=== PATIENT | female | born 1960 | race Caucasian/White ===

== ENCOUNTER 2016-05-21 16:42 | Inpatient (IN) | payer OTHER ==
[~2016-05-21] VITALS: Ht 154.9 cm; Wt 79.8 kg
[~2016-05-21 16:42] MED LIST: BENEPOW8 PO; LACTCAP8 PO; LISI40TA PO
[2016-05-22] MEDS ORDERED: METOPROLOL TARTRATE 25 MG TAB PO PRN (08:15)
[2016-05-22] MEDS ORDERED: INSULIN HUMAN REGULAR 1,000 UNITS/10 ML VIAL SQ PRN (08:15)
[2016-05-22] MEDS ORDERED: LACTATED RINGER'S 1000 ML IV SCH (08:15)
[2016-05-22] MEDS ORDERED: SODIUM CHLORID 0.9% 500 ML IV SCH (08:15)
[2016-05-22] MEDS ORDERED: ceFAZolin INJ 1,000 MG VIAL ONE (08:41)
[2016-05-22] MEDS ORDERED: ASPI1TAB69 PO (08:41)
[2016-05-22] MEDS ORDERED: SODIUM CHLORIDE 0.9% INJ 50 ML ONE (08:42)
[2016-05-22] MEDS ORDERED: VANCOMYCIN HCL 1000 MG VIAL ONE (08:42)
[2016-05-22] MEDS ORDERED: SODIUM CHLOR 0.9% 250 ML INJ 250 ML ONE (08:42)
[2016-05-22 08:47] VITALS: BP 120/78; PULSE 63; RESP 20; TEMP 98.2; O2SAT 96
[2016-05-22] MEDS ORDERED: DEXAMETHASONE SOD PHOS 20 MG/5 ML VIAL ONE (08:56)
[2016-05-22] MEDS ORDERED: MIDAZOLAM HCL 5 MG/5 ML VIAL ONE (09:13)
[2016-05-22] MEDS ORDERED: METOCLOPRAMIDE HCL 10 MG/2 ML VIAL ONE (09:13)
[2016-05-22] MEDS ORDERED: FAMOTIDINE 20 MG/2 ML VIAL ONE (09:13)
[2016-05-22] MEDS ORDERED: ACETAMINOPHEN 1000 MG/100 ML VIAL IV ONE (09:13)
[2016-05-22] MEDS ORDERED: VANCOMYCIN 1000 MG/NS 250 ML (for <70 kg) IV SCH ×2 (09:15)
[2016-05-22] MEDS ORDERED: SODIUM CHLORIDE 0.9% IV SCH ×2 (09:15→12:30)
[2016-05-22] MEDS ORDERED: ceFAZolin 2 GM PREMIX 50 ML IV SCH (09:15)
[2016-05-22] MEDS ORDERED: POVIDONE IODINE 7.5% SCRUB 118 ML BOTTLE TOP SCH (09:15)
[2016-05-22] MEDS ORDERED: ROPIVACAINE PERI-ARTICULAR INJECTION. PERIART SCH ×5 (09:15)
[2016-05-22] MEDS ORDERED: DEXAMETHASONE SOD PHOS 20 MG/5 ML VIAL IV ONE (09:15)
[2016-05-22] MEDS ORDERED: TRANEXAMIC ACID IV SCH ×2 (09:15→12:30)
[2016-05-22] MEDS ORDERED: GENTAMICIN SULFATE 80 MG/2 ML VIAL ONE (09:24)
[2016-05-22] MEDS ORDERED: NEOSTIGMINE 3 MG/3 ML SYR IV ONE (11:06)
[2016-05-22] MEDS ORDERED: ONDANSETRON HCL 4 MG/2 ML VIAL IV PUSH ONE (11:06)
[2016-05-22] MEDS ORDERED: ePHEDrine/NS 25 MG/5 ML SYR IV ONE (11:06)
[2016-05-22] MEDS ORDERED: PROPOFOL 200 MG/20 ML AMP IV ONE (11:06)
[2016-05-22] MEDS ORDERED: LACTATED RINGER'S 1000 ML INJ 1,000 ML IV ONE (11:06)
[2016-05-22] MEDS ORDERED: PHENYLEPH/NS 1000 MCG/10 ML SYR IV ONE (11:06)
--- NOTE | 2016-05-22 11:39 | PD.OP ---
cc: Narendra Tapia MD Operative Report Date of Surgery: May 22, 2016 Preoperative Diagnosis: Right knee severe osteoarthritis Postoperative Diagnosis: Same Procedure: Right total knee arthroplasty Anesthesia: Adductor canal block and general Surgeon: Narendra Tapia Order Checker Packer Processer(s): FABRIZIO Cash The surgical procedure was assisted by my Advanced Registered Nurse Practitioner. My MEDICAL GENETICS DIRECTOR presence was necessary throughout this case for the manipulation and positioning of the surgical extremity. My MEDICAL GENETICS DIRECTOR was assisting me throughout the duration of this procedure. The skill set of an Advance Registered Nurse Practitioner was medically necessary to complete this procedure. During the surgical case, the surgical first assistant was working at the back table and the Advance Registered Nurse Practitioner was directly assisting me. Operation and Findings: IMPLANTS: DePuy Attune: Patella: size 32. Femur, posterior stabilized size 5 narrow. Tibia, rotating platform size 4. Tibial insert, rotating platform, posterior stabilized size 5 mm thickness. ESTIMATED BLOOD LOSS: 150 cc TOURNIQUET TIME: 38 minutes at 250 mmHg pressure. JUSTIFICATION FOR PROCEDURE: The patient has end-stage osteoarthritis to the knee. There is an attached conservative measures pathway form in the chart that describes the nonoperative measures that were undertaken prior to consideration of surgical management. The patient understood the risks and benefits of surgical management. See my office notes for further details PROCEDURE: The patient was brought back to the operative theatre. Adequate anesthesia was obtained. The patient received intravenous vancomycin and Ancef. The patient was given a test dose of Ancef by the anesthesiologist and did not have a reaction. The lower extremity was prepped and draped in the usual sterile fashion.The leg was exsanguinated, the tourniquet was raised. A standard anterior incision was performed followed by medial parapatellar arthrotomy was performed. End-stage arthritis was identified. Osteotomy of the patella was performed. We drilled holes for the patella. We trialed the patella component. We placed an intramedullary guide into the distal femur. We ultimately resected 11 mm off of the distal femur in 5 degrees of valgus. The remnants of the ACL and PCL were resected. Osteotomy of the proximal tibia was performed, resecting 5 mm off of the medial side. This was done with 3 degrees of posterior slope using an extramedullary guide. The distal end of the guide was placed in the mid aspect of the ankle. The femur was sized, and four chamfer cuts were completed in 3 of external rotation. We then cut the central box in the distal femur to replace the PCL. We resected the remnants of the menisci and removed osteophytes off of the femur and tibia. We then trialed the knee. We punched the tibia for the keel, and then used standard technique to cement in components. Excess cement was removed. We trialed the knee again and the final polyethylene thickness was chosen to provide extension to 0 degrees, and flexion of 140 degrees to gravity. The ligaments were appropriately balanced. Lateral release was necessary to obtain excellent patellofemoral tracking. The tourniquet was released and adequate hemostasis was obtained. An intra- articular injection of a ropivacaine cocktail was injected. The posterior knee was inspected for excess cement, which was removed. The final polyethylene was put into position after thorough irrigation. We then closed deep fascia with a #2 Stratafix followed by skin with 2-0 Vicryl followed by kady. Postop plan is to weight-bear as tolerated. DVT prophylaxis will be performed with [place], KEZIA reese, early mobilization, and Lovenox followed by aspirin. Narendra Tapia MD May 22, 2016 11:39
[2016-05-22] MEDS ORDERED: BUPIVACAINE LIPOSOME PF 1.3% 20 ML VIAL ONE (11:40)
[2016-05-22] MEDS ORDERED: ENOX40P SQ (11:41)
[2016-05-22] MEDS ORDERED: ASPI325T PO (11:42)
[2016-05-22] MEDS ORDERED: NORC5TAB PO (11:42)
[2016-05-22] MEDS ORDERED: SODIUM CHLORIDE 0.9% FLUSH 5 ML FLUSH IVF PRN (11:45)
[2016-05-22] MEDS ORDERED: BISACODYL 10 MG SUPP PR PRN (11:45)
[2016-05-22] MEDS ORDERED: NALOXONE HCL 0.4 MG/ML AMP IV PRN (11:45)
[2016-05-22] MEDS ORDERED: ONDANSETRON HCL 4 MG/2 ML VIAL IVP PRN (11:45)
[2016-05-22] MEDS ORDERED: ALUMINUM/MAGNESIUM/SIMETH 30 ML CUP PO PRN (11:45)
[2016-05-22] MEDS ORDERED: MORPHINE SULFATE 4 MG/ML INJ IV PUSH PRN (11:45)
[2016-05-22] MEDS ORDERED: MAGNESIUM HYDROXIDE SUSP 30 ML CUP PO PRN (11:45)
[2016-05-22] MEDS ORDERED: Post-op Orders (for Pharmacy) MISC XX ONE (11:45)
[2016-05-22] MEDS ORDERED: diphenhydrAMINE HCL 50 MG/ML VIAL IV PRN (11:45)
--- NOTE | 2016-05-22 11:52 | HHI.DCPOC ---
Discharge Care Plan Diagnosis: (1) Primary localized osteoarthrosis, lower leg (2) Status post total knee replacement, right Your Health Problems Are: Difficulty with ADL Goals to Promote Your Health * To prevent worsening of your condition and complications * To maintain your health at the optimal level Directions to Meet Your Goals Take your medications as prescribed Follow your dietary instruction Follow activity as directed Keep your appointments as scheduled Take your immunizations and boosters as scheduled If your symptoms worsen call your PCP, if no PCP go to Urgent Care Center or Emergency Room Smoking is Dangerous to Your Health. Avoid second hand smoke Call the 24-hour hour crisis hotline for domestic abuse at Isidoro Ordonez May 22, 2016 11:52
--- NOTE | 2016-05-22 11:53 | HHI.FF ---
Face to Face Verification Diagnosis: (1) Primary localized osteoarthrosis, lower leg (2) Status post total knee replacement, right Physical Therapy Gait training, Transfer training, bed to chair Knee: Total knee Right LE Weight Bearing: WB as tolerated Right LE Range of Motion: Active ROM Nursing Nursing: Miryam teaching, Dressing changes Dressing Changes: Daily dressing change I have seen patient Alanna Sierra on 05/22/16. My clinical findings support the need for the requested home health care services because: Limited ability to care for self High risk of falls I certify that my clinical findings support that this patient is homebound because: Post-op weakness Unsteady gait/balance Isidoro Ordonez May 22, 2016 11:53
[2016-05-22] MEDS ORDERED: WALKER WHEELS/F1 MIS (11:54)
[2016-05-22] MEDS ORDERED: CPMMACHINE (11:54)
[2016-05-22] MEDS ORDERED: COMMODE 3-IN-11 MIS (11:54)
[2016-05-22] MEDS ORDERED: fentaNYL CITRATE 250 MCG/5 ML AMP ONE (11:58)
[2016-05-22] MEDS ORDERED: DO NOT ADM ANY ANTICOAGULANT DRUGS XX PRN (12:15)
[2016-05-22] MEDS: SODIUM CHLOR 0.9% 1000 ML INJ 1,000 ML IV SCH ×2 (12:45→21:54)
[2016-05-22] MEDS ORDERED: *morphine SULFATE 8 MG/ML PERIprocedure ONLY ONE (12:54)
[2016-05-22] MEDS ORDERED: *ONDANSETRON 4 MG VIAL PERIprocedural Use ONLY ONE (12:57)
--- NOTE | 2016-05-22 13:04 | RADRPT ---
EXAM DATE/TIME: 05/22/2016 12:33 [place] COMPARISON: No previous studies available for comparison. INDICATIONS : Right knee surgery. MEDICAL HISTORY : None. SURGICAL HISTORY : right knee prosthesis ENCOUNTER: Initial ACUITY: 1 day PAIN SCORE: 7/10 LOCATION: Right knee FINDINGS: AP and lateral views of the knee following arthroplasty reveals a prosthesis in anatomic alignment. F racture is not appreciated. Surgical drain is evident CONCLUSION: Status post total knee arthroplasty. El Turner MD FACR Board Certified Radiologist. This report was verified electronically.
[2016-05-22] MEDS ORDERED: *PROMETHAZINE 25 MG/ML VIAL PERIprocedural use ONLY ONE (15:31)
[2016-05-22 20:00] VITALS: BP 140/69; PULSE 81; RESP 16; TEMP 96.8; O2SAT 98
[2016-05-22] MEDS ORDERED: ZOLPIDEM TARTRATE 5 MG TAB PO PRN (21:00)
[2016-05-22] MEDS: SODIUM CHLORIDE 0.9% FLUSH 5 ML FLUSH IVF SCH (21:00)
[2016-05-22] MEDS: ACETAMINOPHEN/HYDROcodone 325 MG/5 MG TAB PO PRN (21:54)
[2016-05-23] VITALS (7 sets, daily range): BP systolic 108–124; BP diastolic 56–80; PULSE 75–88; RESP 16–18; TEMP 97.1–99.3; O2SAT 95–97
[2016-05-23] MEDS: ACETAMINOPHEN/HYDROcodone 325 MG/5 MG TAB PO PRN ×3 (05:47→13:52)
[2016-05-23 05:48] LABS: HEMATOCRIT 29.5 % (35.0-46.0); MEAN CELL VOLUME 87.5 FL (80.0-100.0); MEAN CORPUSCULAR HEMOGLOBIN 29.3 PG (27.0-34.0); MEAN CORPUSCULAR HGB CONC 33.5 % (32.0-36.0); PLATELET COUNT 196 TH/MM3 (150-450); RED BLOOD COUNT 3.37 MIL/MM3 (4.00-5.30); RED CELL DISTRIBUTION WIDTH 12.4 % (11.6-17.2); REVIEW FLAG FINAL; WHITE BLOOD COUNT 13.7 TH/MM3 (4.0-11.0)
[2016-05-23] MEDS: SODIUM CHLOR 0.9% 1000 ML INJ 1,000 ML IV SCH (07:34)
[2016-05-23] MEDS ORDERED: DEXAMETHASONE SOD PHOS 20 MG/5 ML VIAL IV ONE (07:45)
[2016-05-23] MEDS ORDERED: LISINOPRIL 20 MG TAB PO SCH (09:00)
[2016-05-23] MEDS: SODIUM CHLORIDE 0.9% FLUSH 5 ML FLUSH IVF SCH (09:00)
[2016-05-23] MEDS ORDERED: ENOXAPARIN SODIUM 40 MG/0.4 ML SYRINGE SQ SCH (11:00)
--- NOTE | 2016-05-23 11:12 | PD.CONS ---
HPI Service [facility] Hospitalists Consult Requested By Dr. Tapia Reason for Consult Medical management Primary Care Physician Hailey Renee MD Diagnoses: (1) Primary localized osteoarthrosis, lower leg (2) Status post total knee replacement, right (3) ESSENTIAL (PRIMARY) HYPERTENSION (4) GERD (gastroesophageal reflux disease) History of Present Illness 55-year-old female with a medical history significant for hypertension, GERD, hiatal hernia and osteoarthritis admitted to the hospital for right knee arthroplasty. Hospitalist service consulted for medical management. Patient reports she has been having issues with osteoarthritis for a few years involving bilateral knees, the right being the worst. She has tried conservative treatments including physical therapy, injections and pain management without much relief. She was admitted for total knee arthroplasty. She is seen postoperatively. She is doing fairly well sitting up in the chair. She ambulated with physical therapy. Currently her pain is controlled. Regarding hypertension, she reports it has been controlled on lisinopril. She denies chest pain or shortness of breath from exertion. Her GERD symptoms are not frequent. She takes Tums as needed. She has no other complaints. Review of Systems Constitutional: DENIES: Fever, Chills Cardiovascular: DENIES: Chest pain, Dyspnea on Exertion, Lower Extremity Edema Musculoskeletal: COMPLAINS OF: Joint pain, Stiffness Neurologic: DENIES: Headache, Localized weakness Other All other systems reviewed and are negative. Past Family Social History Allergies: Coded Allergies: Clindamycin (Verified Allergy, Severe, CDIFF, 05/22/16) Penicillin (Verified Allergy, Severe, HIVES, 05/22/16) Sulfa (Verified Allergy, Severe, Rash, 05/22/16) Past Medical History hypertension, GERD, hiatal hernia and osteoarthritis Past Surgical History Tonsillectomy Hernia repair Total right knee arthroplasty. Reported Medications Reported Meds & Active Scripts Active [place] (Hydrocodone-Acetaminophen) 5-325 mg Tab 1-2 Tab PO Q4H PRN Aspirin 325 Mg Tab 325 Mg PO DAILY Start Aspirin after Lovenox is completed. Lovenox Inj (Enoxaparin Sodium) 40 Mg/0.4 Ml Syr 40 Mg SQ DAILY Start Aspirin after Lovenox is completed. Reported Aspirin 81 Mg Tabdr 81 Mg PO DAILY Probiotic (Lactobacillus Acidophilus) 1 Cap Cap 1 Cap PO DAILYAC Benefiber Powder (Wheat Dextrin Powder) 1 Scoop Container 1 Scoop PO DAILY Mix in water or juice Lisinopril 40 Mg Tab 40 Mg PO DAILY Family History Father of complications from colon cancer. Mother with history of diabetes Social History Patient used to smoke a pack a day but quit 22 years ago. He admits to occasional alcohol. No illicit drug use. Physical Exam Vital Signs Vital Signs Date Time Temp Pulse Resp B/P Pulse Ox O2 Delivery O2 Flow Rate FiO2 05/23/16 08:36 97 21 05/23/16 08:00 99.3 88 18 124/74 97 05/23/16 04:00 97.1 75 16 109/56 95 05/23/16 01:08 96 Nasal Cannula 05/23/16 00:00 98.2 84 17 108/59 96 05/22/16 20:00 96.8 81 16 140/69 98 05/22/16 18:45 97.8 74 16 109/60 96 Room Air 05/22/16 18:00 73 16 107/62 95 Room Air 05/22/16 17:00 74 16 106/64 95 Room Air 05/22/16 16:00 72 16 105/63 95 Room Air 05/22/16 15:00 69 16 108/60 94 Room Air 05/22/16 14:00 75 16 113/64 98 Nasal Cannula 2 05/22/16 13:30 74 16 115/65 97 Nasal Cannula 2 05/22/16 13:00 97.6 72 16 118/67 96 Nasal Cannula 2 05/22/16 12:59 15 05/22/16 12:45 70 16 120/69 95 Nasal Cannula 2 05/22/16 12:30 75 15 129/71 98 Nasal Cannula 3 05/22/16 12:15 79 15 131/76 98 Nasal Cannula 3 05/22/16 12:00 80 14 128/78 97 Nasal Cannula 3 05/22/16 11:50 98.5 99 14 128/89 96 Nasal Cannula 3 Physical Exam GENERAL: This is a well-nourished, well-developed patient, in no apparent distress. SKIN: No rashes, ecchymoses or lesions. Cool and dry. HEAD: Atraumatic. Normocephalic. No temporal or scalp tenderness. EYES: Pupils equal round and reactive. Extraocular motions intact. No scleral icterus. No injection or drainage. ENT: Nose without bleeding, purulent drainage or septal hematoma. Throat without erythema, tonsillar hypertrophy or exudate. Uvula midline. Airway patent. NECK: Trachea midline. No JVD or lymphadenopathy. Supple, nontender, no meningeal signs. CARDIOVASCULAR: Regular rate and rhythm without murmurs, gallops, or rubs. RESPIRATORY: Clear to auscultation. Breath sounds equal bilaterally. No wheezes , rales, or rhonchi. GASTROINTESTINAL: Abdomen soft, non-tender, nondistended. No hepato-splenomegaly , or palpable masses. No guarding. MUSCULOSKELETAL: Right knee is wrapped her postop dressing. She already has some range of motion on the right knee. Neurovascularly intact at the toes. Rest of the major muscle joints are intact. NEUROLOGICAL: Awake and alert. Normal speech. Laboratory Laboratory Tests Test 05/23/16 05:01 White Blood Count 13.7 Red Blood Count 3.37 Hemoglobin 9.9 Hematocrit 29.5 Mean Corpuscular Volume 87.5 Mean Corpuscular Hemoglobin 29.3 Mean Corpuscular Hemoglobin 33.5 Concent Red Cell Distribution Width 12.4 Platelet Count 196 Mean Platelet Volume 8.9 Result Diagram: 05/23/16 0501 Imaging Last Impressions Knee X-Ray 05/22/16 1134 Signed Impressions: Service Date/Time: Sunday, May 22, 2016 12:33 - CONCLUSION: Status post total knee arthroplasty. El Turner MD Assessment and Plan Problem List: (1) Primary localized osteoarthrosis, lower leg ICD Code: M17.10 Status: Acute (2) Status post total knee replacement, right ICD Code: Z96.651 Status: Acute (3) ESSENTIAL (PRIMARY) HYPERTENSION ICD Code: I10 Status: Acute (4) GERD (gastroesophageal reflux disease) ICD Code: K21.9 Status: Acute Assessment and Plan 55-year-old female with: Osteoarthritis of the right knee status post total knee arthroplasty: - Continue routine postop care per orthopedics - Pain control - Continue physical therapy. Hypertension: Currently controlled. Continue lisinopril. Monitor blood pressure. GERD: Patient only has occasional symptoms. Will add Tums to be use as needed. GI prophylaxis: Stool softener PRN constipation. DVT PPx: Mireyax Prieto Bhatt MD May 23, 2016 11:12
--- NOTE | 2016-05-23 12:37 | PD.ORT.PN ---
Subjective Post Op Day #: 1 Subjective Remarks The patient is resting comfortably in bed in NAD. The patient states she is ready to go home today with home health. Patient is voiding and ambulatory. Objective Vitals Vital Signs Date Time Temp Pulse Resp B/P Pulse Ox O2 Delivery O2 Flow Rate FiO2 05/23/16 10:57 18 05/23/16 08:36 97 21 05/23/16 08:00 99.3 88 18 124/74 97 05/23/16 04:00 97.1 75 16 109/56 95 05/23/16 01:08 96 Nasal Cannula 05/23/16 00:00 98.2 84 17 108/59 96 05/22/16 20:00 96.8 81 16 140/69 98 05/22/16 18:45 97.8 74 16 109/60 96 Room Air 05/22/16 18:00 73 16 107/62 95 Room Air 05/22/16 17:00 74 16 106/64 95 Room Air 05/22/16 16:00 72 16 105/63 95 Room Air 05/22/16 15:00 69 16 108/60 94 Room Air 05/22/16 14:00 75 16 113/64 98 Nasal Cannula 2 05/22/16 13:30 74 16 115/65 97 Nasal Cannula 2 05/22/16 13:00 97.6 72 16 118/67 96 Nasal Cannula 2 05/22/16 12:59 15 05/22/16 12:45 70 16 120/69 95 Nasal Cannula 2 05/22/16 12:30 75 15 129/71 98 Nasal Cannula 3 I/O 05/22/16 05/22/16 05/22/16 05/23/16 05/23/16 05/23/16 07:00 15:00 23:00 07:00 15:00 23:00 Intake Total 1300 ml 1230 ml 360 ml Output Total 450 ml 650 ml 1500 ml Balance 850 ml 580 ml -1140 ml Intake Oral 480 ml 360 ml IV Total 750 ml Other 1300 ml Output Urine Total 400 ml 650 ml 1500 ml Estimated Blood Loss 50 ml # Bowel Movements 0 0 Result Diagram: 05/23/16 0501 Procedures Right TKA Objective Remarks The patient's dressing was changed with scant serosanguineous drainage. The incision is well approximated with surgical clips intact. No redness or s/s of infection. EHL/TA/G intact. 2+ pedal pulse. Calf is soft and nontender. Moderate swelling. + SILT. Assessment & Plan Ortho Post Op Day #: 1 Problem List: Assessment and Plan POD #1: Right TKA 1. WBAT RLE 2. Lovenox for DVT prophylaxis 3. Ice to the right knee PRN 4. Stable per ortho for discharge home with home health today. Isidoro Ordonez May 23, 2016 12:37
[2016-05-23] MEDS ORDERED: CALCIUM CARBONATE 500 MG CHEWABLE TAB CHEW PRN (13:30)
[2016-05-23] MEDS ORDERED: DOCUSATE SODIUM 100 MG CAP PO SCH (21:00)
[2016-05-23] MEDS ORDERED: MULTIVITAMINS/MINERALS THERAPEUTIC TAB PO SCH (21:00)
--- NOTE | 2016-05-27 21:30 | HHI.DS ---
Discharge Summary Admission Date May 22, 2016 at 06:49 Discharge Date: May 23, 2016 Admitting Diagnosis Primary localized OA, lower leg Status post total knee replacement, right Diagnosis: (1) Primary localized osteoarthrosis, lower leg Diagnosis: Principal (2) Status post total knee replacement, right Diagnosis: Principal Procedures Right TKA Brief History This is a 55 year old female patient with severe OA of the right knee. CBC/BMP: 05/23/16 0501 PE at Discharge The patient's dressing was changed with scant serosanguineous drainage. The incision is well approximated with surgical clips intact. No redness or s/s of infection. EHL/TA/G intact. 2+ pedal pulse. Calf is soft and nontender. Moderate swelling. + SILT. Hospital Course The patient was admitted to the hospital for severe OA of the right knee to have a right TKA. The patient's surgery went well without complications. The patient had a normal hospital course. The patient is WBAT on the right lower extremity. The patient was discharged to home on and will f/u in the office in [address] Tapia. Pt Condition on Discharge: Stable Discharge Disposition: Disch w/ Home Health Serv Discharge Instructions Diet Instructions: As Tolerated, No Restrictions Activities You Can Perform: Weight Bearing as [place] Activities to Avoid: Strenuous Activity Follow up Referrals: Orthopedics with Narendra Tapia MD New Medications: Aspirin (Aspirin) 325 Mg Tab 325 MG PO DAILY Start Aspirin after Lovenox is completed. Prevent Blood Clot # 30 Ref 0 TAB Commode 3-in-1 (Commode 3-in-1) 1 Mis Mis 1 EA .ROUTE DIRECTED #1 Ref 0 EA CPM-Continuous Passive Motion Machine (CPM-Continuous Passive Motion Machine) 1 Ea Device 1 EA .ROUTE DIRECTED #1 Ref 0 EA Enoxaparin Inj (Lovenox Inj) 40 Mg/0.4 Ml Syr 40 MG SQ DAILY Start Aspirin after Lovenox is completed. Blood Clot Prevention # 10 Ref 0 SYRINGE Hydrocodone-Acetaminophen ([place]) 5-325 mg Tab 1-2 TAB PO Q4H PRN PAIN #60 Ref 0 TAB Walker with Front Wheels (Walker with Front Wheels) 1 Mis Mis 1 EA .ROUTE DIRECTED #1 Ref 0 EA Continued Medications: Lactobacillus Acidophilus (Probiotic) 1 Cap Cap 1 CAP PO DAILYAC Nutritional Supplement #90 Ref 0 CAP Lisinopril (Lisinopril) 40 Mg Tab 40 MG PO DAILY Blood Pressure Management #30 Ref 0 TAB Wheat Dextrin Powder (Benefiber Powder) 1 Scoop Container 1 SCOOP PO DAILY Mix in water or juice Constipation #1 Ref 0 CONTAINER Discontinued Medications: Aspirin (Aspirin) 81 Mg Tabdr 81 MG PO DAILY TAB Isidoro Ordonez May 27, 2016 21:30
== END 2016-05-23 17:20 | disposition home health service (06) | DRG 470 ==
LOC: HSDI 05-22 06:49 → N06B 05-22 19:07
PROVIDERS: ADMIT Orthopaedic Surgery; ATTEND Orthopaedic Surgery
PROC: 3E0T3BZ Introduction of Anesthetic Agent into Peripheral Nerves and Plexi, Percutaneous Approach (ICD-10-PCS; 2016-05-22)
PROC: 0SRC0J9 Replacement of Right Knee Joint with Synthetic Substitute, Cemented, Open Approach (ICD-10-PCS; principal; 2016-05-22 09:44)
DX: M17.11 Unilateral primary osteoarthritis, right knee (principal); I10 Essential (primary) hypertension; K21.9 Gastro-esophageal reflux disease without esophagitis; K44.9 Diaphragmatic hernia without obstruction or gangrene; Z87.891 Personal history of nicotine dependence
CPT/HCPCS: 73560; 85027; 86850; 86900; 86901; 94150; C1776; C9290; J0131; J0171; J0690; J0735; J1100; J1580; J1650; J1885; J2250; J2270; J2370; J2405; J2550; J2710; J2765; J2795; J3010; J3370; J7030; J7050; J7120; L1830

== ENCOUNTER → 2016-08-13 | Day surgery (SDC) | payer OTHER ==
[~2016-08-13] MED LIST changes: +ACETAMINOPHEN/HYDROcodone 325 MG/5 MG TAB ONE; +ASPI325T PO; +COMMODE 3-IN-11 MIS; +CPMMACHINE; +ENOX40P SQ; +KETOROLAC TROMETHAMINE 30 MG/ML (IVP) VIAL ONE; +LACTATED RINGER'S 1000 ML INJ 1,000 ML ONE; +MIDAZOLAM HCL 2 MG/2 ML VIAL ONE; +NORC5TAB PO; +ONDANSETRON HCL 4 MG/2 ML VIAL IV PUSH ONE; +PROPOFOL 100 MG/10 ML INJ IV ONE; +WALKER WHEELS/F1 MIS
--- NOTE | 2016-08-14 13:26 | MP ---
cc: EWA MAYEN M.D. 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 SURGEON Dr. Ewa Mayen CLINICAL REVIEW NURSE Staff. PROCEDURE Right knee manipulation under anesthesia. Preoperative motion 0-90 degrees. Postoperative motion 0-130 degrees. ANESTHESIA General. DETAILS OF PROCEDURE The patient was brought back to the operative theatre. General anesthesia was administered with the use of propofol. We examined the knee under anesthesia and found motion 0-90 degrees. After a timeout was performed we performed the manipulation gently placing pressure on the proximal tibia. We felt the typical tearing of the adhesions and we were able to get flexion to 130 degrees. We took fluoroscopic images and AP and lateral of the knee shows that the total knee replacement was in good position. There were no periprosthetic fractures noted and normal alignment was noted. Postoperative plan is to continue range of motion. MD YOKO Walden/MALCOLM /3:16 PM /1:17 PM
== END | disposition home or self-care (01) ==
LOC: ESDC 13:39
PROVIDERS: ATTEND Orthopaedic Surgery
DX: M24.661 Ankylosis, right knee (principal); Z96.651 Presence of right artificial knee joint
CPT/HCPCS: 01380; 27570; J1885; J2250; J2405; J3010; J7120; 73560